=== PATIENT | male | born 1955 | race Caucasian/White ===

== ENCOUNTER 2018-06-21 07:51 | Day surgery (SDC) | payer BC ==
[2018-06-21] MEDS ORDERED: Lactated Ringers 1,000 ML IV SCH (08:15)
[2018-06-21] MEDS ORDERED: Propofol 200 MG/20 ML SDV IV ONE (09:22)
--- NOTE | 2018-06-21 09:28 | PCM.OPNOTE ---
- General Post-Op/Procedure Note Date of Surgery/Procedure: 06/21/18 Operative Procedure(s): c scope with bx Findings: sigmoid and descending colon polyp sigmoid diverticulosis Pre Op Diagnosis: screening Post-Op Diagnosis: sigmoid and descending colon polyp. sigmoid diverticulosis Anesthesia Technique: MAC Primary Surgeon: Ehsan Esparza Anesthesia Provider: George López Pathology: sigmoid and descending colon polyp Complications: None Condition: Good Free Text/Narrative:: see dictation
[2018-06-21 10:21] VITALS: BP 127/76
--- NOTE | 2018-06-21 15:29 | OR ---
DATE OF OPERATION: 06/21/2018 SURGEON: Ehsan Esparza MD PROCEDURE PERFORMED: Colonoscopy with cold forceps biopsy. PREOPERATIVE DIAGNOSIS: Colon cancer screening. POSTOPERATIVE DIAGNOSIS: Polyp, descending colon and sigmoid colon. INDICATIONS FOR PROCEDURE: This is a 62-year-old white male who presents for his first screening colonoscopy. He was offered and accepted same. DESCRIPTION OF OPERATION: After an excellent IV sedation was administered, digital rectal exam was performed. No marked abnormality was noted. Flexible colonoscope was inserted and advanced to the cecum without difficulty. Prep was excellent. The following findings were noted. Ascending colon was unremarkable. Transverse colon was unremarkable. Descending colon; small 2 mm polypoid appearing lesion, biopsied with cold biopsy forceps, sent for permanent. Sigmoid; scattered diverticula, small polyp, biopsied with cold biopsy forceps and sent for permanent. Rectum and anus, unremarkable. The patient tolerated the procedure well and was taken to recovery in good condition. Results by letter. /[id number] /MODL
== END 2018-06-21 10:35 | disposition home or self-care (01) ==
LOC: FB.SDS 07:51
PROVIDERS: ATTEND Surgery
DX: Z12.11 Encounter for screening for malignant neoplasm of colon (principal); K63.5 Polyp of colon; K57.30 Diverticulosis of large intestine without perforation or abscess without bleeding; I10 Essential (primary) hypertension; I25.10 Atherosclerotic heart disease of native coronary artery without angina pectoris; E78.00 Pure hypercholesterolemia, unspecified; Z95.5 Presence of coronary angioplasty implant and graft; Z87.891 Personal history of nicotine dependence; Z79.82 Long term (current) use of aspirin; Z79.899 Other long term (current) drug therapy
CPT/HCPCS: 45380; 88305; J2704; J7120